=== PATIENT | male | born 1970 ===

== ENCOUNTER 2025-05-06 08:36 | Day surgery (SDC) | payer OTHER ==
[~2025-05-06] VITALS: Ht 177.8 cm; Wt 208.4 kg
[2025-05-06] MEDS ORDERED: SILD50TA (09:32)
== END 2025-05-06 11:27 | disposition home or self-care (01) ==
LOC: ORSCSDS 08:36
PROVIDERS: Internal Medicine Gastroenterology
PROC: 0DBF8ZX Excision of Right Large Intestine, Via Natural or Artificial Opening Endoscopic, Diagnostic (ICD-10-PCS; principal; 2025-05-06 10:30)
DX: R93.3 Abnormal findings on diagnostic imaging of other parts of digestive tract (principal); R10.11 Right upper quadrant pain; F17.220 Nicotine dependence, chewing tobacco, uncomplicated
CPT/HCPCS: 88305; J2704; J7120